=== PATIENT | male | born 1960 | race Caucasian/White ===

== ENCOUNTER → 2018-06-16 | Outpatient (CLI) | payer BC ==
--- NOTE | 2018-06-16 14:27 | KCIC ---
PA and lateral chest x-ray without comparison for bronchitis, intermittent productive cough. FINDINGS: There is a masslike density in the left midlung, which could reflect a pneumonic consolidation or a pulmonary mass. Cardiomediastinum is grossly unremarkable. No significant soft tissue or osseous abnormality. IMPRESSION: 1. Ovoid masslike density in the left midlung, which could reflect pneumonic consolidation or neoplasm. Consider 6-12 weeks radiographic follow-up versus evaluation with CT scan of the chest according to clinical suspicion. Electronically signed by: Saran Mensah MD (06/16/2018 2:23 PM) [id number]
== END | disposition home or self-care (01) ==
LOC: KCIC 08:24
PROVIDERS: ATTEND Family Medicine
DX: J40 Bronchitis, not specified as acute or chronic (principal)
CPT/HCPCS: 71046

== ENCOUNTER → 2018-08-10 | Outpatient (CLI) | payer BC ==
--- NOTE | 2018-08-10 10:14 | KCIC ---
Examination: CT CHEST WO CONTRAST History: Cough, abnormal chest x-ray Comparison/Correlation: 06/16/2018 two-view chest x-ray exam Findings: Axial images of chest were obtained without contrast. Sagittal and coronal reformatted images were provided. The tracheobronchial tree is unremarkable. Right lung field is clear. Left upper lobe is normal. The lingula is unremarkable. There is a left lower lobe nodular consolidation measuring 1.6 cm x 1.6 cm x 1.8 cm anteroposterior. Linear atelectasis along its medial aspect extending to the hilum noted. No pleural effusion. No enlarged thoracic lymph nodes. Left anterior descending coronary arterial calcification noted. Bony structures are unremarkable. Impression: Left lower lobe lateral mid thoracic level nodular consolidative mass lesion is present. This corresponds to the level of the infiltrate seen previously. Decreased surrounding atelectasis about this lesion is suggested. Neoplastic etiology is of concern as this finding has persisted for nearly 2 months. Further evaluation with PET CT exam or biopsy should be considered. Electronically signed by: Bernardo Yu MD (08/10/2018 10:11 AM) [id number]
== END | disposition home or self-care (01) ==
LOC: KCIC CT 07:56
PROVIDERS: ATTEND Family Medicine
DX: E04.1 Nontoxic single thyroid nodule (principal); J98.11 Atelectasis; I25.10 Atherosclerotic heart disease of native coronary artery without angina pectoris
CPT/HCPCS: 71250

== ENCOUNTER 2018-08-16 06:58 | Outpatient (CLI) | payer BC ==
[~2018-08-16] VITALS: Ht 180.3 cm; Wt 80.7 kg
[2018-08-16] VITALS (15 sets, daily range): BP systolic 119–143; BP diastolic 70–87
[2018-08-16 07:58] LABS: BASO # 0.1 x10^3/uL (0.0-0.2); BASO % 1 % (0-3); EOS # 0.1 x10^3/uL (0.0-0.7); EOS % 2 % (0-3); HEMATOCRIT 40.6 % (39.0-53.0); HEMOGLOBIN 13.7 g/dL (13.0-17.5); LYMPH # 2.8 x10^3/uL (1.0-4.8); LYMPH % 39 % (24-48); MEAN CORPUSCULAR HEMOGLOBIN 29 pg (25-35); MEAN CORPUSCULAR HGB CONC 34 g/dL (31-37); MEAN CORPUSCULAR VOLUME 86 fL (79-100); MONO # 0.7 x10^3/uL (0.0-1.1); MONO % 9 % (0-9); NEUT # 3.7 x10^3uL (1.8-7.7); NEUT % 50 % (31-73); PLATELET COUNT 260 x10^3/uL (140-400); RED BLOOD COUNT 4.72 x10^6/uL (4.30-5.70); RED CELL DISTRIBUTION WIDTH 13.6 % (11.5-14.5); WHITE BLOOD COUNT 7.4 x10^3/uL (4.0-11.0)
[2018-08-16 08:07] LABS: PROTHROMBIN TIME PATIENT 12.1 SEC (11.7-14.0)
[2018-08-16 08:09] LABS: CALCIUM 9.3 mg/dL (8.5-10.1); GFR 76.7; POTASSIUM 4.2 mmol/L (3.5-5.1)
[2018-08-16] MEDS ORDERED: LIDOCAINE WITH 8.4% SOD BICARB 3 ML DISP.SYRIN. ONE (08:21)
[2018-08-16] MEDS ORDERED: MIDAZOLAM HCL/PF 2 MG/2 ML VIAL. ONE (08:28)
[2018-08-16] MEDS ORDERED: FLUMAZENIL 0.5 MG/5 ML VIAL. IV ONE (08:28)
[2018-08-16] MEDS ORDERED: NALOXONE 0.4 MG/ML VIAL. ONE (08:28)
[2018-08-16] MEDS ORDERED: fentaNYL PF VIAL 100 MCG/2 ML VIAL ONE (08:28)
[2018-08-16] MEDS ORDERED: LIDOCAINE WITH 8.4% SOD BICARB 3 ML DISP.SYRIN. IJ ONE (09:15)
[2018-08-16] MEDS ORDERED: MIDAZOLAM HCL/PF 2 MG/2 ML VIAL. IV ONE (09:15)
[2018-08-16] MEDS ORDERED: fentaNYL PF VIAL 100 MCG/2 ML VIAL IV ONE (09:15)
--- NOTE | 2018-08-16 09:30 | PDOC1 ---
History and Physical Date of Procedure Date of Admission History of Present Illness Reason for Visit Adult male with persistent left lung infiltrate Past Medical History Past Medical History see nursing pre-op assessment Current Medications Current Medications Current Medications Lidocaine/Sodium Bicarbonate (Buffered Lidocaine 1%) 3 ml STK-MED ONCE .ROUTE ; Start 08/16/18 at 08:21; Stop 08/16/18 at 08:22; Status DC Midazolam HCl (Versed) 2 mg STK-MED ONCE .ROUTE ; Start 08/16/18 at 08:28; Stop 08/16/18 at 08:29; Status DC Fentanyl Citrate (Fentanyl 2ml Vial) 100 mcg STK-MED ONCE .ROUTE ; Start at 08:28; Stop 08/16/18 at 08:29; Status DC Flumazenil (Romazicon) 0.5 mg STK-MED ONCE IV ; Start 08/16/18 at 08:28; Stop at 08:29; Status DC Naloxone HCl (Narcan) 0.4 mg STK-MED ONCE .ROUTE ; Start 08/16/18 at 08:28; Stop 08/16/18 at 08:29; Status DC Lidocaine/Sodium Bicarbonate (Buffered Lidocaine 1%) 3 ml 1X ONCE IJ Last administered on 08/16/18at 09:15; Start 08/16/18 at 09:15; Stop 08/16/18 at 09:16 ; Status DC Midazolam HCl (Versed) 2 mg 1X ONCE IV Last administered on 08/16/18at 09:15; Start 08/16/18 at 09:15; Stop 08/16/18 at 09:16; Status DC Fentanyl Citrate (Fentanyl 2ml Vial) 100 mcg 1X ONCE IV Last administered on at 09:15; Start 08/16/18 at 09:15; Stop 08/16/18 at 09:16; Status DC Active Scripts Active Reported No Known Medications Prior To Admisstion (Info) Each 1 Each DAILY Allergies Allergies: Coded Allergies: Penicillins (Verified Allergy, Unknown, Rash, facial redness, 08/16/18) Physical Exam Vital Signs Vital Signs Date Time Temp Pulse Resp B/P (MAP) Pulse Ox O2 Delivery O2 Flow Rate FiO2 08/16/18 09:20 78 11 140/79 (99) 100 Nasal Cannula 2.0 08/16/18 07:32 97.9 97.9 Other see nursing pre-op assessment Assessment Assessment persistent left lung infiltrate Plan Plan CT biopsy SHANNAN ROCHA MD Aug 16, 2018 09:30
--- NOTE | 2018-08-16 09:30 | PDOC ---
BRIEF OPERATIVE NOTE Pre-Op Diagnosis left lung mass like infiltrate Post-Op Diagnosis same Procedure Performed CT lung biopsy Surgeon Makenna Anesthesia Type: Conscious Sedation Specimens Obtained 5 x 20g cores Complications tiny pneumothorax SHANNAN ROCHA MD Aug 16, 2018 09:30
--- NOTE | 2018-08-16 09:31 | PDOC ---
MODERATE SEDATION ASSESSMENT RISKS/ALTERNATIVES Risks/Alternatives Risks and alternatives of this type of sedation and procedure discussed with: RISK/ALTERNATIVES: Patient H & P ON CHART H & P H & P on chart and reviewed for co-morbid conditions and appropriate labs. H&P ON CHART: Yes STATUS PREG STATUS ASSESSED: Yes MEDS/ALLERGIES REVIEWED Meds/Allergies Reviewed Medications and Allergies including time and route of recently administered narcotics and sedatives. MEDS/ALLERGIES REVIEWED: Yes ASA RATING ASA RATING: II AIRWAY ASSESSMENT Airway Assessment Airway patency, oral function limitations, presence of caps, crowns, dentures, partials, and ability to extend neck assessed. AIRWAY ASSESSMENT: Yes MALLAMPATI SCORE MALLAMPATI SCORE: II PRE-SEDATION ASSESSMENT PRE-SEDATION ASSESSMENT: Yes SHANNAN ROCHA MD Aug 16, 2018 09:31
--- NOTE | 2018-08-16 10:52 | RAD ---
Procedure: CT-guided left lung biopsy Clinical Indication: 58-year-old with left lung nodular airspace opacity which has persisted for several months. Sedation: Conscious sedation was administered with a total intraprocedural [id number] time of 30 minutes. The patient was monitored by a qualified independent observer throughout the time of sedation. Please refer to the medical record for exact doses of medications utilized to achieve moderate sedation. Antibiotics: None Sterility: The procedure was performed in its entirety using appropriate elements of sterile technique. Consent: The procedure was explained in its entirety to the patient or the patients designated claims representative by a member of the treatment team, including a discussion of the risks, benefits and commonly accepted alternatives to the procedure, as well as the expected consequences of no therapy whatsoever. Discussion of the risks included, but was not limited to, those that are most frequent and those that are rare but possibly severe or life-threatening, as well as the possibility of unforeseen complications. Technique and Findings: Following informed consent, the patient was prepped and draped in the usual sterile fashion. Preliminary CT scan of the area of interest was performed. 1% lidocaine was used to achieve local anesthesia. A small dermatotomy was made. Under periodic CT surveillance, a 19-gauge needle guide was advanced towards the targeted lesion and 5 separate 20-gauge core biopsy specimens were obtained and divided between formalin and nonbacteriostatic saline for microbiologic analysis. A blood patch was applied as the needle guide was removed and hemostasis was achieved with manual compression. Complications: A very tiny left pneumothorax is noted. Impression: 1. CT-guided left lung biopsy as described. PQRS Compliance Statement: One or more of the following individualized dose reduction techniques were utilized for this examination: 1. Automated exposure control 2. Adjustment of the mA and/or kV according to patient size 3. Use of iterative reconstruction technique
--- NOTE | 2018-08-16 11:56 | RAD ---
Upright portable chest x-ray compared to PA and lateral dated June 16, 2018 for status post left lung biopsy. FINDINGS: The previously seen nodular airspace densities is nearly completely resolved. There is no pneumothorax or pleural effusion. No new lung parenchymal abnormalities are seen. Heart size is within normal limits. IMPRESSION: 1. Nearly resolved left midlung opacity. Electronically signed by: Saran Mensah MD (08/16/2018 11:53 AM) [id number]
--- NOTE | 2018-08-16 12:20 | NUR ---
Discharge Note: JORGE ALBERTO JIMENEZ Discharge instructions and discharge home medications reviewed with Patient as well as follow up and s/s requiring further attention and a copy given. All questions have been answered and understanding verbalized. The following instructions and handouts were given: post care lung biopsy and post moderation sedation Discontinued lines and drains: r 22g AC Patient discharged to home with via private vehicle. Pt denies pain and tolerating PO well.
--- NOTE | 2018-08-17 17:08 | PATHOLOGY ---
[facility] Accession Number: [id number] . 01 Material submitted: . LEFT LUNG BIOPSY . 01 Clinical history: . Left lung mass . 02 Diagnosis: Lung tissue, left lung mass, CT-guided needle biopsy: - Few small foci of organizing pneumonia. . (JPM:mml; 08/17/2018) [facility]/08/17/2018 . 02 Comment: Sections of the left lung mass, CT-guided needle biopsy, reveal segments of lung tissue showing a few small foci of organizing pneumonia. There is no intra-alveolar exudate. Air spaces are lined by normal and focal reactive pneumocytes. There is no significant interstitial inflammatory infiltrate. There is no evidence of malignancy. Please correlate with radiographic findings. . (JPM:mml; 08/17/2018) . 02 Electronically signed: . Filipe Cortes MD, Pathologist NPI- [id number] . 01 Gross description: . Received in formalin labeled "[place], [place], left lung BX," are 4 distinct needle cores of díaz soft tissue ranging from 0.6 to 1.9 cm in length and measuring less than 0.1 cm each in diameter. The specimen is submitted entirely in cassette A1 through A3. (TSD; 08/16/2018) TOB/TOB . 02 Pathologist provided ICD-10: J84.89 . 02 CPT . 428185 Specimen Comment: A courtesy copy of this report has been sent to Specimen Comment: [phone], , . Specimen Comment: Report sent to ,DR LINARES / DR PAYNE Performed at: [address] [place] [id number] MD Kana Hall MD Phone: [phone] Performed at: [address] [id number] MD Filipe Cortes MD Phone: [phone]
== END 2018-08-16 12:30 | disposition home or self-care (01) ==
LOC: INTRAD 06:58
PROVIDERS: ATTEND Internal Medicine Pulmonary Disease
DX: J18.9 Pneumonia, unspecified organism (principal); J84.89 Other specified interstitial pulmonary diseases; J93.83 Other pneumothorax; Z88.0 Allergy status to penicillin; Z79.899 Other long term (current) drug therapy; Z79.01 Long term (current) use of anticoagulants
CPT/HCPCS: 32405; 36415; 71045; 77012; 80048; 85025; 85610; 99152; 99153; C1892; J2250; J3010; 87071; 87075

== ENCOUNTER → 2018-10-15 | Outpatient (CLI) | payer BC ==
[2018-08-16 12:20] VITALS: BP 133/74
--- NOTE | 2018-10-15 09:31 | KCIC ---
Exam performed: CT scan of the chest without contrast. Indication: Follow-up pulmonary nodule Date of Service: 10/15/2018. Comparison: CT chest without contrast from 06/17/2019 and chest x-rays from 08/16/2018 and 06/16/2018 Technique: Contiguous helical acquisitions are obtained through the chest without IV contrast. Sagittal and coronal reformatted images are obtained and reviewed. CT chest findings: There is significant interval improvement in previously seen consolidative nodular opacity in the apical segment of the left lower lobe.There is now a small area of faint groundglass opacity in the region of previously seen dense consolidative nodular opacity. The exact size of this process is difficult to measure, however measures to the order of 2.8 x 2.2 cm in maximum transverse and AP dimension. There are no additional or new nodules in either lungs. There is no pleural effusion or pneumothorax Lack of IV contrast limits evaluation of neck and intrathoracic great vessels, however they appear grossly normal in course and caliber. Occasional subcentimeter bilateral axillary lymph nodes are stable and appear nonpathological. No dominant mediastinal, hilar or axillary lymphadenopathy seen. The central airway is patent. Limited evaluation of the upper abdominal structures is unremarkable. Impression CT chest: 1. Interval improvement in the size or appearance of the previously seen consolidative nodule in the apical segment of the left lower lobe with a small area of persistent groundglass opacity remaining in the area of previously seen abnormality. A short-term interval follow-up CT chest without contrast in approximately 3 months may be obtained to ensure interval resolution. PQRS Compliance Statement: One or more of the following individualized dose reduction techniques were utilized for this examination: 1. Automated exposure control 2. Adjustment of the mA and/or kV according to patient size 3. Use of iterative reconstruction technique Electronically signed by: Lore Quarles MD (10/15/2018 9:28 AM) [place] [id number]
== END | disposition home or self-care (01) ==
LOC: KCIC CT 08:48
PROVIDERS: ATTEND Internal Medicine Pulmonary Disease
DX: R91.1 Solitary pulmonary nodule (principal)
CPT/HCPCS: 71250